=== PATIENT | male | born 1960 | race Two or more races ===

== ENCOUNTER 2018-08-11 09:07 | Emergency (ER) | payer OTHER ==
[~2018-08-11] VITALS: Ht 162.6 cm; Wt 68.0 kg
[2018-08-11 09:12] VITALS: BP 112/73
--- NOTE | 2018-08-11 09:43 | NUR ---
seen and evaluated by Dr Phelan and medically cleared for booking
== END 2018-08-11 09:51 ==
LOC: ER 09:14
DX: Z02.89 Encounter for other administrative examinations (principal); I10 Essential (primary) hypertension; J45.909 Unspecified asthma, uncomplicated; Z90.89 Acquired absence of other organs; Z98.890 Other specified postprocedural states
CPT/HCPCS: 99283; A4606

== ENCOUNTER 2025-04-11 13:25 | Inpatient (IN) | payer MEDICARE, OTHER ==
[~2025-04-11] VITALS: Ht 162.6 cm; Wt 67.6 kg
[2025-04-11 14:54] LABS: PLATELET COUNT (AUTO) 615 K/uL (150-450); RED BLOOD CELL COUNT(AUTO) 3.30 MIL/uL (4.5-6.0); RED CELL DISTRIBUTION WIDTH 13.4 % (11.5-15.0); WHITE BLOOD COUNT (AUTO) 8.4 K/uL (4.3-11.0)
[2025-04-11 14:59] LABS: CALCIUM, SERUM 8.6 mg/dL (8.5-10.1); CREATININE 0.7 mg/dL (0.6-1.3); SODIUM SERUM 130 mmol/L (136-145); UREA NITROGEN, BLOOD 13 mg/dL (7-18)
[2025-04-11 15:04] LABS: ASPARTATE AMINOTRANSFERASE 39 U/L (15-37); TOTAL PROTEIN, SERUM 6.8 g/dL (6.4-8.2)
[2025-04-11 15:17] LABS: APPEARANCE,URINE SLIGHTLY CLOUDY (CLEAR); BLOOD, URINE 2+ Ery/uL (NEGATIVE); LEUKOCYTE ESTERASE ,URINE 1+ (NEGATIVE); NITRITE, URINE NEGATIVE (NEGATIVE); UGLUCOSE NEGATIVE (NEGATIVE)
[2025-04-11 15:21] LABS: ADD URINE CULTURE YES; SQUAMOUS EPITHELIAL CELL,UR None Seen /HPF (None Seen); URINE AMORPHOUS PHOSPHATES Moderate /HPF (None Seen)
[2025-04-11 15:23] LABS: AMPHETAMINE, URINE NEGATIVE (NEGATIVE); BARBITURATE, URINE NEGATIVE (NEGATIVE); BENZODIAZEPINE, URINE POSITIVE (NEGATIVE); CANNABINOID, URINE NEGATIVE (NEGATIVE); COCCAINE, URINE NEGATIVE (NEGATIVE); OPIATE, URINE NEGATIVE (NEGATIVE)
[2025-04-11] MEDS ORDERED: QUETIAPINE FUMARATE 25 MG TABLET PO PRN (18:00)
[2025-04-11] MEDS ORDERED: MAG HYDROX/AL HYDROX/SIMETH 30 ML UDC PO PRN (18:00)
[2025-04-11] MEDS ORDERED: MAGNESIUM HYDROXIDE 30 ML UDC PO PRN (18:00)
[2025-04-11] MEDS: CEPHALEXIN MONOHYDRATE 500 MG CAPSULE PO ONE (18:14)
[2025-04-11] MEDS: BLOOD SUGAR DIAGNOSTIC 1 EACH STRIP IN ONE (18:38)
[2025-04-11] MEDS ORDERED: LORA-259 PO (19:32)
[2025-04-11] MEDS ORDERED: AMLO-212 PO (19:32)
[2025-04-11] MEDS ORDERED: CYAN100096 PO (19:34)
[2025-04-11] MEDS ORDERED: DIVA500T2 PO (19:36)
[2025-04-11] MEDS ORDERED: TAMS-12 PO (19:39)
[2025-04-11] MEDS ORDERED: FOLI0.8T3 PO (19:40)
[2025-04-11] MEDS ORDERED: LEVE1000 PO (19:41)
[2025-04-11] MEDS ORDERED: ONDA-97 PO (19:42)
[2025-04-11] MEDS ORDERED: OLAN2.5T3 PO (19:42)
[2025-04-11] MEDS ORDERED: PANT40TA49 PO (19:43)
[2025-04-11] MEDS ORDERED: SODI100037 PO (19:44)
[2025-04-11] MEDS: ZOLPIDEM TARTRATE 5 MG TABLET PO PRN (21:56)
[2025-04-12] MEDS: CEPHALEXIN MONOHYDRATE 250 MG CAPSULE PO SCH (00:08)
[2025-04-12] MEDS ORDERED: LORAZEPAM INJ 2 MG/ML VIAL IV PRN (00:30)
[2025-04-12 07:39] LABS: PLATELET COUNT (AUTO) 599 K/uL (150-450); RED BLOOD CELL COUNT(AUTO) 3.23 MIL/uL (4.5-6.0); RED CELL DISTRIBUTION WIDTH 13.4 % (11.5-15.0); WHITE BLOOD COUNT (AUTO) 5.9 K/uL (4.3-11.0)
[2025-04-12 07:53] LABS: CALCIUM, SERUM 8.5 mg/dL (8.5-10.1); CREATININE 0.8 mg/dL (0.6-1.3); SODIUM SERUM 132.0 mmol/L (136-145); UREA NITROGEN, BLOOD 14.0 mg/dL (7-18)
[2025-04-12 07:59] LABS: LDL 84.0 mg/dL (0-99)
[2025-04-12 08:00] VITALS: BP 144/78; TEMP 98.6; O2SAT 98
[2025-04-12] MEDS: PANTOPRAZOLE 40 MG TABLET.DR PO SCH (08:20)
[2025-04-12] MEDS: LEVETIRACETAM (250 MG) 250 MG TABLET PO SCH (08:20)
[2025-04-12] MEDS: SODIUM CHLORIDE 1000 MG TABLET PO SCH (08:20)
[2025-04-12] MEDS: FOLIC ACID 1 MG TABLET PO SCH (08:20)
[2025-04-12] MEDS: CYANOCOBALAMIN 500 MCG TABLET PO SCH (08:20)
[2025-04-12] MEDS: DIVALPROEX SODIUM 250 MG TABLET.DR PO SCH (08:20)
[2025-04-12] MEDS: AMLODIPINE BESYLATE 5 MG TABLET PO SCH (08:22)
[2025-04-12 15:32] LABS: VALPROIC ACID 6.0 ug/mL (50-100)
[2025-04-12 16:00] VITALS: BP 125/71; TEMP 98.1; O2SAT 97
[2025-04-12] MEDS: OLANZAPINE 5 MG TABLET PO SCH (16:35)
[2025-04-12 20:14] VITALS: BP 130/55; TEMP 98.1; O2SAT 96
[2025-04-12] MEDS: TAMSULOSIN 0.4 MG CAP.SR.24H PO SCH (21:15)
[2025-04-12 22:51] VITALS: BP 123/69; TEMP 98; O2SAT 98
[2025-04-13 07:45] VITALS: BP 110/73; TEMP 98.1; O2SAT 99
[2025-04-13 07:45] LABS: SERUM AMMONIA 18 umol/L (11-32)
[2025-04-13 10:07] LABS: FOLIC ACID 14.5 ng/mL (>3.0)
[2025-04-13 15:57] VITALS: BP 100/53; TEMP 98; O2SAT 100
[2025-04-13 17:50] LABS: VALPROIC ACID 10 ug/mL (50-100)
[2025-04-13 20:59] VITALS: BP 103/64; TEMP 98.1; O2SAT 98
[2025-04-14 07:43] VITALS: BP 107/65; TEMP 97.8; O2SAT 96
[2025-04-14 14:57] VITALS: BP 100/53; TEMP 97.8; O2SAT 98
[2025-04-14 19:35] VITALS: BP 117/64; TEMP 97.9; O2SAT 98
[2025-04-14] MEDS: ACETAMINOPHEN 325 MG TABLET PO PRN (19:39)
[2025-04-15 08:00] VITALS: BP 127/85; TEMP 97.7; O2SAT 97
[2025-04-15 08:01] LABS: CALCIUM, SERUM 8.2 mg/dL (8.5-10.1); CREATININE 0.7 mg/dL (0.6-1.3); SODIUM SERUM 139.0 mmol/L (136-145); UREA NITROGEN, BLOOD 17.0 mg/dL (7-18)
[2025-04-15 16:41] VITALS: BP 119/80; TEMP 97.7; O2SAT 98
[2025-04-15 20:24] VITALS: BP 139/67; TEMP 98.2; O2SAT 99
[2025-04-15] MEDS: OXCARBAZEPINE 150 MG TABLET PO SCH (21:22)
[2025-04-16 07:53] VITALS: BP 161/91; TEMP 97.7; O2SAT 98
[2025-04-16 16:00] VITALS: BP 142/88; TEMP 98.6; O2SAT 97
[2025-04-16 19:54] VITALS: BP 114/61; TEMP 98.7; O2SAT 98
[2025-04-17 08:00] VITALS: BP 118/85; TEMP 97.9; O2SAT 99
[2025-04-17 16:00] VITALS: BP 101/55; TEMP 98.6; O2SAT 96
[2025-04-17 20:00] VITALS: BP 109/69; TEMP 98.2; O2SAT 96
[2025-04-18 08:00] VITALS: BP 102/66; TEMP 97.7; O2SAT 97
[2025-04-18 15:59] VITALS: BP 122/66; TEMP 98.9; O2SAT 96
[2025-04-18 20:42] VITALS: BP 124/71; TEMP 98.2; O2SAT 98
[2025-04-19 08:00] VITALS: BP 128/79; TEMP 97.7; O2SAT 97
[2025-04-19 18:06] VITALS: BP 147/82; TEMP 98.7; O2SAT 98
[2025-04-19 18:36] VITALS: BP 148/82; TEMP 98.5; O2SAT 98
[2025-04-19 20:25] VITALS: BP 127/83; TEMP 98; O2SAT 97
[2025-04-20 08:09] VITALS: BP 119/73; TEMP 97.8; O2SAT 100
[2025-04-20 15:16] VITALS: BP 102/62; TEMP 98.1; O2SAT 96
[2025-04-20 20:34] VITALS: BP 122/74; TEMP 97.5; O2SAT 98
[2025-04-21 07:52] VITALS: BP 114/67; TEMP 97.7; O2SAT 99
[2025-04-21 15:33] VITALS: BP 124/86; TEMP 98.3; O2SAT 97
[2025-04-21 19:44] VITALS: BP 114/58; TEMP 98.3; O2SAT 100
[2025-04-22 08:00] VITALS: BP 112/62; TEMP 97.3; O2SAT 98
[2025-04-22 15:58] VITALS: TEMP 97.7; O2SAT 98
[2025-04-22 19:43] VITALS: BP 114/74; TEMP 98.5; O2SAT 98
[2025-04-23 08:00] VITALS: BP 122/84; TEMP 98.7; O2SAT 98
[2025-04-23 08:34] VITALS: BP 122/84
== END 2025-04-23 13:33 | DRG 884 ==
LOC: ER 13:30 → GPS 17:32
PROVIDERS: ADMIT Nurse Practitioner Psychiatric/Mental Health
DX: F03.92 Unspecified dementia, unspecified severity, with psychotic disturbance (principal); E44.1 Mild protein-calorie malnutrition; N39.0 Urinary tract infection, site not specified; F31.2 Bipolar disorder, current episode manic severe with psychotic features; E87.1 Hypo-osmolality and hyponatremia; F03.93 Unspecified dementia, unspecified severity, with mood disturbance; F03.94 Unspecified dementia, unspecified severity, with anxiety; F03.911 Unspecified dementia, unspecified severity, with agitation; F29 Unspecified psychosis not due to a substance or known physiological condition; F39 Unspecified mood [affective] disorder; F41.9 Anxiety disorder, unspecified; Z20.822 Contact with and (suspected) exposure to COVID-19; I10 Essential (primary) hypertension; J45.909 Unspecified asthma, uncomplicated; G40.909 Epilepsy, unspecified, not intractable, without status epilepticus; Z79.899 Other long term (current) drug therapy; Z90.49 Acquired absence of other specified parts of digestive tract; Z98.890 Other specified postprocedural states; E88.09 Other disorders of plasma-protein metabolism, not elsewhere classified; D75.839 Thrombocytosis, unspecified; F10.20 Alcohol dependence, uncomplicated; D64.9 Anemia, unspecified; Z73.6 Limitation of activities due to disability; B96.89 Other specified bacterial agents as the cause of diseases classified elsewhere; F15.10 Other stimulant abuse, uncomplicated; Z91.199 Patient's noncompliance with other medical treatment and regimen due to unspecified reason; Z87.828 Personal history of other (healed) physical injury and trauma
CPT/HCPCS: 36415; 70450-TC; 80048-TC; 80061-TC; 80076-TC; 80164-TC; 81001; 82140-TC; 84425; 85025-TC; 87081-TC; 87086-TC; G0480